=== PATIENT | male | born 1950 | race Caucasian/White ===

== ENCOUNTER 2023-12-10 11:55 | Emergency (ER) | payer MEDICARE, OTHER, SELFPAY ==
[2023-12-10 12:15] VITALS: BP 113/69; PULSE 63; RESP 16; TEMP 37.1; O2SAT 99
--- NOTE | 2023-12-10 12:21 | ED.SKABFB ---
HPI - Skin/Abscess/Foreign Bdy General Chief complaint: Skin/Abscess/Foreign Body Stated complaint: poison rachelle Time Seen by Provider: 12/10/23 12:17 Source: patient and RN notes reviewed Mode of arrival: ambulatory Limitations: no limitations History of Present Illness HPI narrative: Patient presents today complaining of poison rachelle to his bilateral legs, bilateral arms, and face. He was doing yd work 2 days ago when he came in contact with the. He has tried some Benadryl and [id number] medication without relief. States he is very allergic. Related Data Home Medications Medication Instructions Recorded Confirmed amlodipine 5 mg tablet 5 mg PO DAILY 12/10/23 12/10/23 aspirin 81 mg chewable tablet 81 mg PO DAILY 12/10/23 12/10/23 atorvastatin 10 mg tablet 10 mg PO DAILY 12/10/23 12/10/23 Allergies Allergy/AdvReac Type Severity Reaction Status Date / Time No Known Allergies Allergy Verified 12/10/23 12:17 Review of Systems Review of Systems: CONSTITUTIONAL: Denies body aches, fever, chills, or sweats. EYES: Denies visual changes, redness, or discharge. ENT: Denies rhinorrhea, congestion, sore throat, or otalgia. CARDIOVASCULAR: Denies chest pain, palpitations, or edema. RESPIRATORY: Denies cough or dyspnea. GASTROINTESTINAL: Denies abdominal pain, nausea, vomiting, or diarrhea. GENITOURINARY: Denies dysuria or hematuria. SKIN: Poison rachelle rash. MUSCULOSKELETAL: Denies back pain, joint pain, or myalgia. NEUROLOGIC: Denies headache, numbness, tingling, or weakness. PSYCH: Denies depression or anxiety. [facility] Past Medical History Medical History (Updated 12/10/23 @ 12:25 by Flavia Plummer, [facility], ) High cholesterol Hypertension Comments At time of signature, I have reviewed and agree with nursing past medical, surgical, social and family history unless otherwise noted. Please see nursing chart for further information. There is no relevant family history pertinent to the presenting complaint Exam Narrative: GENERAL: Well-appearing, well-nourished, and in no acute distress. HEAD: Normocephalic, atraumatic. EYES: EOMI. No redness or drainage. Conjunctivae normal. ENT: Mucous membranes pink and moist. NECK: Normal AROM. CHEST: No respiratory distress. EXTREMITIES: Normal range of motion. No edema. SKIN: Warm, dry. Capillary refill normal. Normal skin turgor. Erythematous maculopapular rash with scabbing at times to the bilateral upper and lower legs, bilateral forearms. Papular rash to the bilateral cheeks and forehead. No signs of infection NEURO: No focal deficits. Alert and oriented x3. Gait steady. PSYCH: Normal affect. No signs of depression or anxiety. Course Course Level of Care: Express Care Visit Vital Signs Vital signs: Vital Signs Temperature 98.8 F 12/10/23 12:15 Pulse Rate 63 12/10/23 12:15 Respiratory Rate 16 12/10/23 12:15 Blood Pressure 113/69 12/10/23 12:15 Pulse Oximetry 99 12/10/23 12:15 Oxygen Delivery Room Air 12/10/23 12:15 Temperature 98.8 F 12/10/23 12:15 Pulse Rate 63 12/10/23 12:15 Respiratory Rate 16 12/10/23 12:15 Blood Pressure 113/69 12/10/23 12:15 Pulse Oximetry 99 12/10/23 12:15 Oxygen Delivery Room Air 12/10/23 12:15 Reviewed MDM - Skin/Abscess/Foreign Bdy MDM Narrative Medical decision making narrative: Patient's rash is consistent with poison rachelle dermatitis. He will be treated with a tapering dose of prednisone. Anticipatory guidance given. Differential Diagnosis Differential diagnosis: Likely abscess of skin or subcutaneous tissue, viral exanthem, urticaria, cellulitis, eczema, impetigo and contact dermatitis Critical Care Time Critical Care Time Critical Care Time: No Discharge Plan Discharge Clinical Impression: Poison rachelle dermatitis Patient Disposition: Home, Self-Care Condition: Stable Instructions: Poison Rachelle (ED) Additional Instructions: Please take the
== END 2023-12-10 12:29 | disposition home or self-care (01) ==
PROVIDERS: Emergency Provider Nurse Practitioner
DX: L23.7 Allergic contact dermatitis due to plants, except food (principal); E78.00 Pure hypercholesterolemia, unspecified; I10 Essential (primary) hypertension; Z79.82 Long term (current) use of aspirin
CPT/HCPCS: 99203; G0463